=== PATIENT | female | born 1975 | race Caucasian/White ===

== ENCOUNTER 2019-05-11 | Emergency (ER) | payer OTHER ==
[~2019-05-11] MED LIST: CEPHALEXIN500 MG PO; FISH OIL1000 MG PO; PERCOCET 5/325M1 TAB PO; PRENATA4 OR; ZOFRAN ODT4 MG PO
[2019-05-11 11:49] LABS: HEMATOCRIT 42.5 % (37.0-47.0); HEMOGLOBIN 14.3 g/dl (12.0-16.0); IMMATURE GRANULOCYTES 0.3 % (0.0-5.0); MEAN CELL VOLUME 93.2 fL CALC (80.0-100.0); MEAN CORPUSCULAR HGB 31.4 pG CALC (26.0-32.0); MEAN CORPUSCULAR HGB CONC 33.6 g/L CALC (32.0-36.0); NEUT# 7.01 thou/uL (2.00-7.15); RED BLOOD COUNT 4.56 mill/uL (4.20-5.60); RED CELL DISTRI WIDTH 12.9 % (11.5-15.5)
[2019-05-11 12:04] LABS: ALBUMIN 4.3 g/dL (3.2-5.0); ALKALINE PHOSPHATASE 69 u/l (38-126); ANION GAP 14 (6-22 (CALC)); BILIRUBIN, TOTAL 0.6 mg/dL (0.0-1.4); BUN 13 mg/dL (7-17); BUN/CREATININE RATIO 20 (12-20 (CALC)); CARBON DIOXIDE 22 mmol/l (22-30); CHLORIDE 106 mmol/l (95-108); CREATININE 0.7 mg/dL (0.5-1.0); GFR > 60 ML/MIN (>=60 (CALC)); GFR FOR AFR.AMER. > 60 ML/MIN (>=60 (CALC)); POTASSIUM 4.2 mmol/l (3.5-5.1); SGOT/AST 19 u/l (14-36); SODIUM 138 mmol/l (137-146); TOTAL PROTEIN 7.4 g/dL (6.3-8.2)
[2019-05-11 12:47] LABS: COCAINE NEGATIVE (NEGATIVE); METHADONE NEGATIVE (NEGATIVE); TETRAHYDROCANNABIONOL NEGATIVE (NEGATIVE); URINE BILIRUBIN - DIPSTICK NEGATIVE (NEGATIVE); URINE BLOOD DIPSTICK NEGATIVE (NEGATIVE); URINE COLOR YELLOW; URINE GLUCOSE - DIPSTICK NEGATIVE (NEGATIVE); URINE KETONE NEGATIVE (NEGATIVE); URINE LEUK ESTERASE NEGATIVE (NEGATIVE); URINE NITRITE - DIPSTICK NEGATIVE (Negative); URINE PH 6.5 (4.5-8.0); URINE PROTEIN - DIPSTICK NEGATIVE (NEG-TRACE); URINE SPECIFIC GRAVITY <=1.005; URINE UROBILINOGEN - DIPSTICK 0.2 E.U./dL (0.2)
[2019-05-11 12:48] LABS: BARBITURATES NEGATIVE (NEGATIVE); OXCYCODONE NEGATIVE (NEGATIVE); TRICYLIC ANTIDEPRESSANTS NEGATIVE (NEGATIVE)
[2019-05-11] MEDS ORDERED: NAPROXEN500 MG PO (12:48)
[2020-01-03] MEDS ORDERED: TRAZODONE100 MG PO (10:38)
[2020-01-03] MEDS ORDERED: OMEGA 31000 MG PO (10:39)
[2020-01-03] MEDS ORDERED: CITRACA1 PO (10:39)
[2020-01-03] MEDS ORDERED: MULTI VIT PO (10:39)
[2020-01-03] MEDS ORDERED: [UNRECOGNIZED DRUG - OTHER] (10:39)
[2020-01-03] MEDS ORDERED: XANAX0.25 MG PO (10:40)
[2020-01-03] MEDS ORDERED: CBD PO (10:40)
[2020-01-03] MEDS ORDERED: ESTROVEN PO (10:40)
[2020-01-03] MEDS ORDERED: GINKGO BILOB60 MG PO (10:41)
[2020-01-16] MEDS ORDERED: AMOXICILLIN500 MG PO (10:51)
== END 2019-05-11 13:17 | disposition home or self-care (01) | DRG 556 ==
PROVIDERS: Emergency Medicine
DX: M79.7 Fibromyalgia (principal)

== ENCOUNTER 2019-11-21 13:53 | Emergency (ER) | payer OTHER ==
[~2019-11-21] VITALS: Ht 165.1 cm; Wt 75.0 kg
[~2019-11-21 13:53] MED LIST changes: +NAPROXEN500 MG PO
[2019-11-21 14:26] LABS: HEMATOCRIT 45.4 % (37.0-47.0); HEMOGLOBIN 14.9 g/dl (12.0-16.0); IMMATURE GRANULOCYTES 0.3 % (0.0-5.0); MEAN CELL VOLUME 94.8 fL CALC (80.0-100.0); MEAN CORPUSCULAR HGB 31.1 pG CALC (26.0-32.0); MEAN CORPUSCULAR HGB CONC 32.8 g/dL CAL (32.0-36.0); NEUT# 8.55 thou/uL (2.00-7.15); RED BLOOD COUNT 4.79 mill/uL (4.20-5.60); RED CELL DISTRI WIDTH 12.3 % (11.5-15.5)
[2019-11-21 14:55] LABS: ALBUMIN 4.7 g/dL (3.2-5.0); ALKALINE PHOSPHATASE 88 u/l (38-126); ANION GAP 13 (6-22 (CALC)); BUN 8 mg/dL (7-17); BUN/CREATININE RATIO 15 (12-20 (CALC)); CARBON DIOXIDE 25 mmol/l (22-30); CHLORIDE 101 mmol/l (95-108); CREATININE 0.6 mg/dL (0.5-1.0); GFR > 60 ML/MIN (>=60 (CALC)); GFR FOR AFR.AMER. > 60 ML/MIN (>=60 (CALC)); LIPASE 62 u/l (23-300); POTASSIUM 4.3 mmol/l (3.5-5.1); SGOT/AST 28 u/l (14-36); SODIUM 135 mmol/l (137-146); TOTAL PROTEIN 7.5 g/dL (6.3-8.2)
[2019-11-21 15:06] LABS: BILIRUBIN, TOTAL 0.9 mg/dL (0.0-1.4)
[2019-11-21 16:35] LABS: URINE BILIRUBIN - DIPSTICK NEGATIVE (NEGATIVE); URINE BLOOD DIPSTICK NEGATIVE (NEGATIVE); URINE COLOR YELLOW; URINE GLUCOSE - DIPSTICK NEGATIVE (NEGATIVE); URINE KETONE 40 mg/dL (NEGATIVE); URINE LEUK ESTERASE NEGATIVE (NEGATIVE); URINE NITRITE - DIPSTICK NEGATIVE (Negative); URINE PH 7.5 (4.5-8.0); URINE PROTEIN - DIPSTICK NEGATIVE (NEG-TRACE); URINE UROBILINOGEN - DIPSTICK 0.2 E.U./dL (0.2)
[2019-11-21] MEDS ORDERED: PROTONIX40 MG PO (16:47)
[2019-11-21 17:10] VITALS: BP 136/72
[2019-11-21] MEDS ORDERED: PHENERGAN25 MG/TAB PO (17:11)
[2020-01-03] MEDS ORDERED: TRAZODONE100 MG PO (10:38)
[2020-01-03] MEDS ORDERED: MULTI VIT PO (10:39)
[2020-01-03] MEDS ORDERED: [UNRECOGNIZED DRUG - OTHER] (10:39)
[2020-01-03] MEDS ORDERED: OMEGA 31000 MG PO (10:39)
[2020-01-03] MEDS ORDERED: CITRACA1 PO (10:39)
[2020-01-03] MEDS ORDERED: ESTROVEN PO (10:40)
[2020-01-03] MEDS ORDERED: XANAX0.25 MG PO (10:40)
[2020-01-03] MEDS ORDERED: CBD PO (10:40)
[2020-01-03] MEDS ORDERED: GINKGO BILOB60 MG PO (10:41)
[2020-01-16] MEDS ORDERED: AMOXICILLIN500 MG PO (10:51)
== END 2019-11-21 17:10 | disposition home or self-care (01) | DRG 392 ==
LOC: ED 13:53
PROVIDERS: Family Medicine
DX: R11.2 Nausea with vomiting, unspecified (principal); R10.84 Generalized abdominal pain; Z98.890 Other specified postprocedural states
CPT/HCPCS: S0164

== ENCOUNTER 2020-01-23 07:14 | Day surgery (SDC) | payer OTHER ==
[~2020-01-23] VITALS: Ht 165.1 cm; Wt 74.8 kg
[~2020-01-23 07:14] MED LIST changes: +AMOXICILLIN500 MG PO; +CBD PO; +CITRACA1 PO; +ESTROVEN PO; +GINKGO BILOB60 MG PO; +MULTI VIT PO; +OMEGA 31000 MG PO; +PHENERGAN25 MG/TAB PO; +PROTONIX40 MG PO; +TRAZODONE100 MG PO; +XANAX0.25 MG PO; +[UNRECOGNIZED DRUG - OTHER]
[2020-01-23] MEDS ORDERED: OXYCODO-APAP1 TA2 PO (08:38)
[2020-01-23 09:45] VITALS: BP 119/62
== END 2020-01-23 09:50 | disposition home or self-care (01) | DRG 392 ==
LOC: ENDO 07:14 → ORM 08:45 → ENDO 09:50
PROVIDERS: ATTEND Surgery
PROC: 0DB68ZX Excision of Stomach, Via Natural or Artificial Opening Endoscopic, Diagnostic (ICD-10-PCS; principal; 2020-01-23)
PROC: 0DB78ZX Excision of Stomach, Pylorus, Via Natural or Artificial Opening Endoscopic, Diagnostic (ICD-10-PCS; 2020-01-23)
DX: K29.50 Unspecified chronic gastritis without bleeding (principal); K21.9 Gastro-esophageal reflux disease without esophagitis; K31.7 Polyp of stomach and duodenum; J45.909 Unspecified asthma, uncomplicated; Z79.899 Other long term (current) drug therapy; Z20.828 Contact with and (suspected) exposure to other viral communicable diseases